=== PATIENT | female | born 1980 | race Caucasian/White ===

== ENCOUNTER 2018-12-30 05:49 | Emergency (ER) | payer BC, MEDICAID ==
--- NOTE | 2018-12-30 06:09 | EDM.PDOC ---
<Mazin Fam - Last Filed: 12/30/18 07:02> ED HPI GENERAL MEDICAL PROBLEM - General Chief Complaint: Chest Pain Stated Complaint: BACK PAIN AND CHEST PAIN Time Seen by Provider: 12/30/18 06:01 - History of Present Illness INITIAL COMMENTS - FREE TEXT/NARRATIVE: 38-year-old female presents emergency room with abdominal, back pain Patient has had vague symptoms for the last day of left-sided abdominal discomfort without associated nausea vomiting. Was more vague flank discomfort. Around 4:00 this morning she woke up with really severe pain on the left side every couple minutes she gets these sharp episodes of pain like of left flank into her abdomen does not shoot into the groin. At times it makes it very difficult to take a deep breath and at times radiates up into the left chest. Patient does not have associated nausea vomiting diarrhea constipation no fevers or chills no burning or frequency with urination no hematuria. Left Chest Pain Score (Numeric/FACES): 10 - Related Data Allergies Allergy/AdvReac Type Severity Reaction Status Date / Time No Known Allergies Allergy Verified 12/30/18 06:00 Home Meds: Home Meds Azithromycin [Zithromax] 250 mg PO DAILY #6 tab 12/30/18 [Rx] ED ROS GENERAL - Review of Systems Review Of Systems: See Below Constitutional: Reports: No Symptoms. Denies: Fever, Chills HEENT: Reports: No Symptoms Respiratory: Reports: No Symptoms Cardiovascular: Reports: Chest Pain (For the most part the pain radiates from her abdomen when pain in the abdomen is at its worst). Denies: No Symptoms Endocrine: Reports: No Symptoms GI/Abdominal: Reports: Abdominal Pain : Reports: Flank Pain. Denies: Dysuria, Frequency, Hematuria, Urgency, Urinary Retention Musculoskeletal: Reports: Back Pain Skin: Reports: No Symptoms Neurological: Reports: No Symptoms Psychiatric: Reports: No Symptoms Hematologic/Lymphatic: Reports: No Symptoms ED EXAM, GENERAL - Physical Exam Exam: See Below Exam Limited By: No Limitations General Appearance: Moderate Distress (from the pain) Respiratory/Chest: No Respiratory Distress, Lungs Clear, Normal Breath Sounds Cardiovascular: Regular Rate, Rhythm, No Edema, No Murmur GI/Abdominal: Normal Bowel Sounds, Soft, Other (Left-sided tenderness that is not aggravated or made worse with palpation no rigidity rebound or guarding noted) Back Exam: Normal Inspection. No: CVA Tenderness (L), CVA Tenderness (R) EKG INTERPRETATION EKG Date: 12/30/18 Rhythm: NSR Raymond: Normal P-Wave: Present QRS: Normal ST-T: Normal QT: Normal Comparison: NA - No Prior EKG EKG Interpretation Comments: Normal EKG Course - Vital Signs Last Recorded V/S: Last Vital Signs Temp 36.4 C 12/30/18 06:00 Pulse 88 12/30/18 06:00 Resp 18 12/30/18 06:00 BP 121/69 12/30/18 06:00 Pulse Ox 100 12/30/18 06:00 - Orders/Labs/Meds Orders: Active Orders 24 hr Category Date Time Status EKG Documentation Completion [RC] STAT Care 12/30/18 06:19 Active Lactated Ringers [Ringers, Lactated] 1,000 ml Med 12/30/18 08:00 Active IV .BOLUS Medication Orders Lactated Ringer's (Ringers, Lactated) 1,000 mls @ 999 mls/hr IV .BOLUS MARY Labs: Laboratory Tests 12/30/18 12/30/18 12/30/18 Range/Units 06:04 06:04 06:15 WBC 8.87 (3.98-10.04) K/mm3 RBC 4.87 (3.98-5.22) M/mm3 Hgb 14.3 (11.2-15.7) gm/L Hct 42.4 (34.1-44.9) % MCV 87.1 (79.4-94.8) fl MCH 29.4 (25.6-32.2) pg MCHC 33.7 (32.2-35.5) g/dl RDW Std Deviation 42.8 (36.4-46.3) fL Plt Count 377 H (182-369) K/mm3 MPV 8.9 L (9.4-12.3) fl Neutrophils % (Manual) 55 (40-60) % Band Neutrophils % 0 (0-10) % Lymphocytes % (Manual) 36 (20-40) % Atypical Lymphs % 0 % Monocytes % (Manual) 6 (2-10) % Eosinophils % (Manual) 3 (0.7-5.8) % Basophils % (Manual) 0 L (0.1-1.2) Platelet Estimate Adequate RBC Morph Comment Normal Sodium 139 (136-145) mEq/L Potassium 4.0 (3.5-5.1) mEq/L Chloride 104 (98-107) mEq/L Carbon Dioxide 20 L (21-32) mEq/L Anion Gap 19.0 H (5-15) BUN 21 H (7-18) mg/dL Creatinine 0.9 (0.55-1.02) mg/dL Est Cr Clr Drug Dosing 77.79 mL/min Estimated GFR (MDRD) > 60 (>60) mL/min BUN/Creatinine Ratio 23.3 H (14-18) Glucose 117 H (74-106) mg/dL Calcium 9.1 (8.5-10.1) mg/dL Total Bilirubin 0.3 (0.2-1.0) mg/dL AST 13 L (15-37) U/L ALT 15 (14-59) U/L Alkaline Phosphatase 55 (46-116) U/L Total Protein 7.8 (6.4-8.2) g/dl Albumin 4.1 (3.4-5.0) g/dl Globulin 3.7 gm/dL Albumin/Globulin Ratio 1.1 (1-2) Urine Color Yellow (Yellow) Urine Appearance Clear (Clear) Urine pH 5.5 (5.0-8.0) Ur Specific Tracy 1.025 (1.005-1.030) Urine Protein Negative (Negative) Urine Glucose (UA) Negative (Negative) Urine Ketones Negative (Negative) Urine Occult Blood 1+ H (Negative) Urine Nitrite Negative (Negative) Urine Bilirubin Negative (Negative) Urine Urobilinogen 0.2 (0.2-1.0) Ur Leukocyte Esterase Trace H (Negative) Urine RBC 0-5 (0-5) /hpf Urine WBC 0-5 (0-5) /hpf Ur Epithelial Cells 5-10 H (0-5) /hpf Urine Bacteria Few (FEW) /hpf Urine Mucus Few (FEW) /hpf Urine HCG, Qual (NEGATIVE) 12/30/18 Range/Units 06:15 WBC (3.98-10.04) K/mm3 RBC (3.98-5.22) M/mm3 Hgb (11.2-15.7) gm/L Hct (34.1-44.9) % MCV (79.4-94.8) fl MCH (25.6-32.2) pg MCHC (32.2-35.5) g/dl RDW Std Deviation (36.4-46.3) fL Plt Count (182-369) K/mm3 MPV (9.4-12.3) fl Neutrophils % (Manual) (40-60) % Band Neutrophils % (0-10) % Lymphocytes % (Manual) (20-40) % Atypical Lymphs % % Monocytes % (Manual) (2-10) % Eosinophils % (Manual) (0.7-5.8) % Basophils % (Manual) (0.1-1.2) Platelet Estimate RBC Morph Comment Sodium (136-145) mEq/L Potassium (3.5-5.1) mEq/L Chloride (98-107) mEq/L Carbon Dioxide (21-32) mEq/L Anion Gap (5-15) BUN (7-18) mg/dL Creatinine (0.55-1.02) mg/dL Est Cr Clr Drug Dosing mL/min Estimated GFR (MDRD) (>60) mL/min BUN/Creatinine Ratio (14-18) Glucose (74-106) mg/dL Calcium (8.5-10.1) mg/dL Total Bilirubin (0.2-1.0) mg/dL AST (15-37) U/L ALT (14-59) U/L Alkaline Phosphatase (46-116) U/L Total Protein (6.4-8.2) g/dl Albumin (3.4-5.0) g/dl Globulin gm/dL Albumin/Globulin Ratio (1-2) Urine Color (Yellow) Urine Appearance (Clear) Urine pH (5.0-8.0) Ur Specific Tracy (1.005-1.030) Urine Protein (Negative) Urine Glucose (UA) (Negative) Urine Ketones (Negative) Urine Occult Blood (Negative) Urine Nitrite (Negative) Urine Bilirubin (Negative) Urine Urobilinogen (0.2-1.0) Ur Leukocyte Esterase (Negative) Urine RBC (0-5) /hpf Urine WBC (0-5) /hpf Ur Epithelial Cells (0-5) /hpf Urine Bacteria (FEW) /hpf Urine Mucus (FEW) /hpf Urine HCG, Qual Negative (NEGATIVE) Meds: Medications Generic Name Dose Route Start Last Admin Trade Name Freq PRN Reason Stop Dose Admin Lactated Ringer's 1,000 mls @ 999 mls/hr 12/30/18 08:00 Ringers, Lactated IV .BOLUS MARY Discontinued Medications Generic Name Dose Route Start Last Admin Trade Name Rose PRN Reason Stop Dose Admin Hydromorphone HCl 0.5 mg 12/30/18 06:10 12/30/18 06:16 Dilaudid IVPUSH 12/30/18 06:11 0.5 mg ONETIME ONE Administration Lactated Ringer's 1,000 mls @ 125 mls/hr 12/30/18 06:15 12/30/18 06:15 Ringers, Lactated IV 125 mls/hr ASDIRECTED MARY Administration Ketorolac Tromethamine 15 mg 12/30/18 07:19 12/30/18 07:27 Toradol IVPUSH 12/30/18 07:20 15 mg ONETIME ONE Administration Ondansetron HCl 4 mg 12/30/18 06:10 12/30/18 06:16 Zofran IVPUSH 12/30/18 06:11 4 mg ONETIME ONE Administration - Re-Assessments/Exams Free Text/Narrative Re-Assessment/Exam: 12/30/18 07:20 Minimal effect with the Dilaudid will give Toradol 15 mg IV repeat if needed. At this time it's changes shift further care and disposition per Dr. Duff Departure - Departure Disposition: Home, Self-Care 01 Clinical Impression: Constipation by delayed colonic transit Abdominal pain Qualifiers: Abdominal location: left upper quadrant Qualified Code(s): R10.12 - Left upper quadrant pain - Discharge Information Prescriptions: Azithromycin [Zithromax] 250 mg PO DAILY #6 tab Referrals: Kriss Bergeron [employer] [Primary Care Provider] - Forms: ED Department Discharge, ED Return to Work/School Form Additional Instructions: Evaluation the emergency room this morning carried out primarily by reveals a normal white count and it trace of a few red blood cells in the urine with no signs of any infection. Concern with the pleuritic left upper quadrant pain rating up injured chest was whether not there could be a kidney stone causing problems. CT scan of the abdomen does reveal 2 small stones embedded within the tissue of the left kidney but they are not causing any problems at this time. There was no stone in either ureter to cause obstruction or pain. There is a trace of fluid and some basal atelectasis of the left lung likely from inability take a deep breath when you're having such bad pain. There is only a lot of air in the colon distending the upper: On the left side pushing the diaphragm upwards and I suspect causing your pain syndrome. There is increased stool throughout the right hemicolon by mild constipation. Is therefore magnesium citrate 7 ounces taken with 6 ounces of juice of choice or Gatorade Powerade by mouth once. This will usually start work in 1-2 hours in the bowels move 3 or 4 times clearing of the right hemicolon. This will also get rid of the gas in the left upper colon. Written a prescription for Zithromax or Z-Toby if you develop any fever chills or cough in case that the changes I'm seeing in the base of the left lung represent an early inflammatory process. Motrin 6 mg every 6 hours needed for relief of pruritic chest pain if needed. Should be better after bowel cleanse however if the pain persists greater than 2 days you should be seen again. - My Orders Last 24 Hours: My Active Orders 12/30/18 08:00 Lactated Ringers [Ringers, Lactated] 1,000 ml IV .BOLUS - Assessment/Plan Last 24 Hours: My Active Orders 12/30/18 08:00 Lactated Ringers [Ringers, Lactated] 1,000 ml IV .BOLUS <Hugo Duff - Last Filed: 12/30/18 08:44> Course - Re-Assessments/Exams Free Text/Narrative Re-Assessment/Exam: 12/30/18 08:02 Care was assumed from Dr. Fam at change of shift. CT scan of the abdomen and pelvis was pending. It is been completed per renal protocol. Visualized portions of the lungs feel trace pleural effusion versus atelectasis left lower lung field. Is correlates to where her pain is which was pleuritic in nature. However she has no signs or symptoms of infection with fever chills or cough. Visualized portion of the heart are normal. Liver appears homogeneous with no intraductal dilatation. Gallbladder contains no calcified gallstones. Pancreas is normal. Spleen appears to be normal. His increased stool throughout the colon particularly the right hemicolon and portions of the hepatic flexure. There is a large amount of gas distending the left upper: Under the diaphragm which may be causing some of the referred pain up into her chest. Both kidneys appear to be within normal limits. Both adrenal glands are normal. The right renal pelvis is minimally dilated but no obvious dilatation of the ureter or obstruction is identified. The left kidney contains 2 small stones 1-1.5 mm but the ureter is normal without any obstructive uropathy. Bladder appears to be normal. No free fluid in the pelvis. Ovaries and uterus appear to be within normal limits. There are 2 large phleboliths in the pelvis. Patient does have an IUD in place. 12/30/18 08:36 Her pain is pretty well gone after the Toradol. Patient will be discharged to home. She will have a bowel cleanse with Citroma taking 7 ounces with 6 ounces of juice of choice this morning to provide right hemicolon cleanse. Continue Motrin 6 mg every 6 hours needed for relief of pleuritic type pain left chest. Going to send her home with a prescription for Z-Toby if needed if she develops fever chills or increased cough. My impression is that the left lung base is mostly atelectasis on CT scan. Departure - Departure Time of Disposition: 08:40 Condition: Fair - Discharge Information *PRESCRIPTION DRUG MONITORING PROGRAM REVIEWED*: Not Applicable *COPY OF PRESCRIPTION DRUG MONITORING REPORT IN PATIENT JORDYN: Not Applicable
[2018-12-30] MEDS ORDERED: HYDROmorphone 0.5 MG/0.5 ML Syringe IVPUSH ONE (06:10)
[2018-12-30] MEDS ORDERED: Ondansetron 4 MG/2 ML SDV IVPUSH ONE (06:10)
[2018-12-30] MEDS ORDERED: Lactated Ringers 1,000 ML IV SCH ×2 (06:15→08:00)
[2018-12-30] MEDS ORDERED: Ketorolac 15 MG/ML SDV IVPUSH ONE (07:19)
--- NOTE | 2018-12-30 08:28 | CT ---
CT abdomen and pelvis Technique: Multiple axial sections were obtained from above the dome of the diaphragm inferiorly through the pubic symphysis. Intravenous contrast was not utilized. Study has been performed as a ureteral stone protocol. Comparison: No prior CT abdomen or pelvis exam. Findings: Very small nonobstructing calculi are seen within the mid and lower left kidney measuring less than 3 mm. Right kidney shows no abnormal calcifications. No ureteral dilatation is seen. No abnormal calcifications are seen along the course of the ureters. Visualized lung bases show mild increased density within the left base. Differential includes atelectasis as well as early area of pneumonia. Trace pleural effusion is noted on the left side. Liver contains no focal abnormality. Gallbladder contains no calcified gallstones. Spleen appears within normal limits. Adrenal glands show no nodule. Pancreas is within normal limits. Aorta shows no aneurysm. No retroperitoneal adenopathy or mesenteric abnormalities are seen. Appendix is felt to be visualized and is normal in size. IUD is present within the uterus. No pelvic mass is seen. No free fluid or inflammatory change is noted. Bone window settings were reviewed which appear within normal limits for the patient's age. Impression: 1. Increased density within the left lung base with minimal pleural effusion also noted within the left lung base. Parenchymal density could represent prominent atelectasis as well as small area of pneumonia if patient has infectious symptoms. 2. Two small nonobstructing calculi within the left kidney. No ureteral dilatation or ureteral stone is seen. 3. IUD. No other acute abnormality is appreciated on CT study of the abdomen and pelvis performed as a ureteral stone protocol. Diagnostic code #3
[2018-12-30] MEDS ORDERED: Magnesium Citrate Solution 296 ML Bottle PO ONE (08:36)
== END 2018-12-30 08:55 | disposition home or self-care (01) ==
LOC: JD.ED 05:49
DX: K59.01 Slow transit constipation (principal)
CPT/HCPCS: 36415; 74176; 80053; 81001; 81025; 85007; 85027; 93005; 96361; 96374; 96375; 99285; A9270; J1170; J1885; J2405; J7120; 93010; 99284